=== PATIENT | female | born 1970 | race Caucasian/White ===

== ENCOUNTER → 2018-05-11 | Outpatient (CLI) | payer MEDICARE, OTHER ==
--- NOTE | 2018-05-12 08:17 | US ---
EXAMINATION TYPE: US kidneys/renal and bladder DATE OF EXAM: 05/11/2018 COMPARISON: NONE CLINICAL HISTORY: R31.9 Hematuria. Hematuria EXAM MEASUREMENTS: Right Kidney: 9.2 x 3.6 x 3.3 cm Left Kidney: 9.1 x 4.5 x 4.3 cm Technical limitations due to large amount of overlying bowel content Right Kidney: no evidence of hydronephrosis Left Kidney: no evidence of hydronephrosis Bladder: appear wnl Bilateral Jets seen: yes IMPRESSION: 1. Normal renal ultrasound as visualized.
== END | disposition home or self-care (01) ==
LOC: RADUSWWP 15:31
PROVIDERS: ATTEND Family Medicine
DX: R31.9 Hematuria, unspecified (principal)
CPT/HCPCS: 76770